=== PATIENT | male | born 1985 ===

== ENCOUNTER 2023-05-28 21:08 | Emergency (ER) | payer MEDICAID, SELFPAY ==
[2023-05-28 21:14] VITALS: BP 133/65; PULSE 143; RESP 18; TEMP 37.7; O2SAT 96; BMI 24.1
[2023-05-28 21:26] VITALS: BP 130/62; PULSE 136; RESP 16; TEMP 37.5; O2SAT 96
--- NOTE | 2023-05-28 21:43 | MHC.EDTECH ---
THIS PCT JUST ASSUMED CARE OF PATIENT ,VITALS SIGN TAKEN ,BLOOD DRAWN ,RSV COVID SWAB COLLECTED AND SENT TO LAB ,EKG TAKEN AND WAS READ BY PROVIDER ,PATIENT WAS HOOKED UP TO [facility] .
--- NOTE | 2023-05-28 21:58 | ED.GENADULT ---
HPI - General Adult General Chief complaint: General Medical Stated complaint: abd pain,sore throat Time Seen by Provider: 05/28/23 21:56 Source: patient Mode of arrival: ambulatory Limitations: no limitations History of Present Illness HPI narrative: Patient with History of chronic abdominal pain otherwise healthy comes here for sore throat low-grade fever chills nausea for last 3 days no vomiting no abdominal distention patient has not seen in MD for abdominal pain does have occasional cough no shortness of breath Related Data Previous Rx's Medication Instructions Recorded cefuroxime axetil 500 mg tablet 500 mg PO BID #20 tabs 05/29/23 ibuprofen 600 mg tablet 600 mg PO Q6H PRN fever or pain 05/29/23 #30 tabs Allergies Allergy/AdvReac Type Severity Reaction Status Date / Time No Known Allergies Allergy Unverified 12/04/21 15:09 [No Known Allergies*] Review of Systems Review of Systems: Yes all other systems are reviewed and are negative PMFSH Social History Social History Advance Directives: No Advance Directives Information Provided: Yes Physical Exam ED Vital Signs: Vital Signs - 24 hr 05/28/23 21:14 05/28/23 21:26 05/28/23 22:43 Temperature 99.8 F 99.5 F 98.7 F Pulse Rate 143 H 136 H 101 H Respiratory Rate 18 16 20 Blood Pressure 133/65 130/62 116/70 Pulse Oximetry 96 96 95 Oxygen Delivery Method Room Air Room Air Room Air 05/28/23 23:25 Temperature 98.7 F Pulse Rate 82 Respiratory Rate 16 Blood Pressure 102/53 L Pulse Oximetry 97 Oxygen Delivery Method Room Air BMI result Body Mass Index 24.1 Appearance: Alert. Oriented X3. No acute distress. Eyes: No pallor or icterus ENT: Pharynx normal. Oral Mucosa moist Neck: Normal inspection. Neck supple. CVS: Normal heart rate and rhythm. Pulses normal. Respiratory: No respiratory distress. Equal air entry bilateral, no wheezing/rales/rhonchi Abdomen: Soft deep tenderness left lower quadrant no rebound tenderness or guarding Bowel sounds are present, no mass palpable, no CVA tenderness Skin: Skin warm and dry. Normal skin color. Normal skin turgor. Extremities: No lower extremity edema. No calf tenderness Neuro: Oriented X 3. No motor deficit. Medications Administered Generic Name Dose Route Start Last Admin Trade Name Jensen PRN Reason Stop Dose Admin Sodium Chloride 1,000 mls @ 999 mls/hr 05/29/23 00:11 05/29/23 00:18 Ns IV 05/29/23 01:11 999 mls/hr .Q1H1M ONE Administration Discontinued Medications Generic Name Dose Route Start Last Admin Trade Name Jensen PRN Reason Stop Dose Admin Sodium Chloride 1,000 mls @ 999 mls/hr 05/28/23 22:06 05/28/23 23:18 Ns IV 05/28/23 23:06 Infused .Q1H1M ONE Infusion Ceftriaxone Sodium 1 gm/ 50 mls @ 100 mls/hr 05/28/23 22:14 05/28/23 23:11 Sodium Chloride IV 05/28/23 22:43 Infused ONCE ONE Infusion Ketorolac Tromethamine 30 mg 05/28/23 22:06 05/28/23 22:16 Ketorolac Tromethamine 30 Mg/Ml Vial IVPUSH 05/28/23 22:07 30 mg ONCE ONE Administration Medical Decision Making Medical Decision Making [facility] Narrative: Patient workup showed normal leukocyte count with lactic acidosis tachycardia urine was cocaine positive. CT scan of the abdomen was negative strep was also negative likely patient has a bacterial pharyngitis patient received IV Rocephin discharge patient home on Ceftin. Patient does have chronic abdominal which is nonspecific Lab Data [facility] Lab Attestation statement: I reviewed the patient's lab results. 05/28/23 21:33 05/28/23 21:33 Labs: Lab Results 05/28/23 05/28/23 05/28/23 Range/Units 21:33 21:33 21:33 WBC 10.4 (4.8-10.8) X10*3/uL RBC 4.56 L (4.60-5.80) X10*6/uL Hgb 14.1 (14.0-18.0) g/dl Hct 42.8 (42.0-52.0) % MCV 93.9 (80.0-98.0) fL MCH 30.9 (27.0-33.0) pg MCHC 32.9 (31.0-36.0) g/dl RDW 12.8 (11.0-16.0) % Plt Count 345 (160-400) X10*3/uL MPV 10.0 (9.4-12.4) fL Immature Gran % (Auto) 0.4 (0.0-0.4) % Neut % (Auto) 76.1 H (45-73) % Lymph % (Auto) 16.9 L (20-40) % Tift % (Auto) 5.6 (2-11) % Eos % (Auto) 0.3 (0-4) % Baso % (Auto) 0.7 (0-2) % Lymph # (Auto) 1.8 (1.2-4.9) X10*3/uL Tift # (Auto) 0.6 (0.1-1.2) X10*3/uL Eos # (Auto) 0.0 (0.0-0.4) X10*3/uL Baso # (Auto) 0.1 (0.0-0.2) X10*3/uL Abs Immat Gran (auto) 0.04 H (0.00-0.03) X10*3/uL Absolute Neuts (auto) 8.0 (2.0-8.3) x10*3/uL Absolute Nucleated RBC 0.000 (0.0-0.012) X10*3/uL Nucleated RBC % (auto) 0.0 (0.0-0.2) /100WBC Sodium 142 (135-145) mmol/L Potassium 3.6 (3.3-5.1) mmol/L Chloride 107 (96-108) mmol/L Carbon Dioxide 23 (22-29) mmol/L Anion Gap 16 (12-20) BUN 14 (9-16) mg/dL Creatinine 1.27 (0.5-1.4) mg/dL Estim Creat Clear Calc 69.9 Estimated GFR > 60 Random Glucose 122 H (60-115) mg/dL Lactic Acid 2.9 H* (0.5-2.0) mmol/L Lactic Acid F/U @ 2Hr (0.5-2.0) mmol/L Calcium 9.7 (8.4-10.2) mg/dL Total Bilirubin 0.5 (0.0-1.0) mg/dL AST 22 (5-37) U/L ALT 19 (0-40) U/L Alkaline Phosphatase 78 (39-117) U/L Total Protein 7.8 (6.5-8.0) g/dL Albumin 4.4 (3.5-5.0) g/dL Lipase 160 H (8-78) U/L Urine Color Urine Appearance Urine pH (5.0-9.0) Ur Specific [place] (1.005-1.025) Urine Protein (Neg-Trace) mg/dL Urine Glucose (UA) (Negative) mg/dL Urine Ketones (Negative) mg/dL Urine Blood (Negative) Urine Nitrite (Negative) Ur Leukocyte Esterase (Negative) Urine RBC (0-2) /HPF Urine WBC (0-5) /HPF Ur Squamous Epith Cells (0-2) /HPF Urine Bacteria (None Seen) Hyaline Casts (0-2) /LPF Urine Opiates Screen (Not Detect) Urine Fentanyl Screen (Not Detect) Ur Barbiturates Screen (Not Detect) Ur Phencyclidine Scrn (Not Detect) Ur Amphetamines Screen (Not Detect) U Benzodiazepines Scrn (Not Detect) Urine Cocaine Screen (Not Detect) U Marijuana (THC) Screen (Not Detect) Influenza Type A (PCR) (Negative) Influenza Type B (PCR) (Negative) RSV RNA Qual (PCR) (Negative) SARS-CoV-2 RNA (RT-PCR) (Negative) S. pyogenes GrpA [place] (Negative) 05/28/23 05/28/23 05/28/23 Range/Units 21:33 22:16 23:47 WBC (4.8-10.8) X10*3/uL RBC (4.60-5.80) X10*6/uL Hgb (14.0-18.0) g/dl Hct (42.0-52.0) % MCV (80.0-98.0) fL MCH (27.0-33.0) pg MCHC (31.0-36.0) g/dl RDW (11.0-16.0) % Plt Count (160-400) X10*3/uL MPV (9.4-12.4) fL Immature Gran % (Auto) (0.0-0.4) % Neut % (Auto) (45-73) % Lymph % (Auto) (20-40) % Tift % (Auto) (2-11) % Eos % (Auto) (0-4) % Baso % (Auto) (0-2) % Lymph # (Auto) (1.2-4.9) X10*3/uL Tift # (Auto) (0.1-1.2) X10*3/uL Eos # (Auto) (0.0-0.4) X10*3/uL Baso # (Auto) (0.0-0.2) X10*3/uL Abs Immat Gran (auto) (0.00-0.03) X10*3/uL Absolute Neuts (auto) (2.0-8.3) x10*3/uL Absolute Nucleated RBC (0.0-0.012) X10*3/uL Nucleated RBC % (auto) (0.0-0.2) /100WBC Sodium (135-145) mmol/L Potassium (3.3-5.1) mmol/L Chloride (96-108) mmol/L Carbon Dioxide (22-29) mmol/L Anion Gap (12-20) BUN (9-16) mg/dL Creatinine (0.5-1.4) mg/dL Estim Creat Clear Calc Estimated GFR Random Glucose (60-115) mg/dL Lactic Acid (0.5-2.0) mmol/L Lactic Acid F/U @ 2Hr 1.6 (0.5-2.0) mmol/L Calcium (8.4-10.2) mg/dL Total Bilirubin (0.0-1.0) mg/dL AST (5-37) U/L ALT (0-40) U/L Alkaline Phosphatase (39-117) U/L Total Protein (6.5-8.0) g/dL Albumin (3.5-5.0) g/dL Lipase (8-78) U/L Urine Color Urine Appearance Urine pH (5.0-9.0) Ur Specific [place] (1.005-1.025) Urine Protein (Neg-Trace) mg/dL Urine Glucose (UA) (Negative) mg/dL Urine Ketones (Negative) mg/dL Urine Blood (Negative) Urine Nitrite (Negative) Ur Leukocyte Esterase (Negative) Urine RBC (0-2) /HPF Urine WBC (0-5) /HPF Ur Squamous Epith Cells (0-2) /HPF Urine Bacteria (None Seen) Hyaline Casts (0-2) /LPF Urine Opiates Screen (Not Detect) Urine Fentanyl Screen (Not Detect) Ur Barbiturates Screen (Not Detect) Ur Phencyclidine Scrn (Not Detect) Ur Amphetamines Screen (Not Detect) U Benzodiazepines Scrn (Not Detect) Urine Cocaine Screen (Not Detect) U Marijuana (THC) Screen (Not Detect) Influenza Type A (PCR) NEGATIVE (Negative) Influenza Type B (PCR) NEGATIVE (Negative) RSV RNA Qual (PCR) NEGATIVE (Negative) SARS-CoV-2 RNA (RT-PCR) NEGATIVE (Negative) S. pyogenes GrpA [place] Negative (Negative) 05/29/23 05/29/23 Range/Units 00:31 00:31 WBC (4.8-10.8) X10*3/uL RBC (4.60-5.80) X10*6/uL Hgb (14.0-18.0) g/dl Hct (42.0-52.0) % MCV (80.0-98.0) fL MCH (27.0-33.0) pg MCHC (31.0-36.0) g/dl RDW (11.0-16.0) % Plt Count (160-400) X10*3/uL MPV (9.4-12.4) fL Immature Gran % (Auto) (0.0-0.4) % Neut % (Auto) (45-73) % Lymph % (Auto) (20-40) % Tift % (Auto) (2-11) % Eos % (Auto) (0-4) % Baso % (Auto) (0-2) % Lymph # (Auto) (1.2-4.9) X10*3/uL Tift # (Auto) (0.1-1.2) X10*3/uL Eos # (Auto) (0.0-0.4) X10*3/uL Baso # (Auto) (0.0-0.2) X10*3/uL Abs Immat Gran (auto) (0.00-0.03) X10*3/uL Absolute Neuts (auto) (2.0-8.3) x10*3/uL Absolute Nucleated RBC (0.0-0.012) X10*3/uL Nucleated RBC % (auto) (0.0-0.2) /100WBC Sodium (135-145) mmol/L Potassium (3.3-5.1) mmol/L Chloride (96-108) mmol/L Carbon Dioxide (22-29) mmol/L Anion Gap (12-20) BUN (9-16) mg/dL Creatinine (0.5-1.4) mg/dL Estim Creat Clear Calc Estimated GFR Random Glucose (60-115) mg/dL Lactic Acid (0.5-2.0) mmol/L Lactic Acid F/U @ 2Hr (0.5-2.0) mmol/L Calcium (8.4-10.2) mg/dL Total Bilirubin (0.0-1.0) mg/dL AST (5-37) U/L ALT (0-40) U/L Alkaline Phosphatase (39-117) U/L Total Protein (6.5-8.0) g/dL Albumin (3.5-5.0) g/dL Lipase (8-78) U/L Urine Color Dark Yellow Urine Appearance Cloudy Urine pH 6.0 (5.0-9.0) Ur Specific [place] >= 1.030 H (1.005-1.025) Urine Protein 30 (1+) H (Neg-Trace) mg/dL Urine Glucose (UA) Negative (Negative) mg/dL Urine Ketones Trace (Negative) mg/dL Urine Blood Negative (Negative) Urine Nitrite Negative (Negative) Ur Leukocyte Esterase Negative (Negative) Urine RBC 0-2 (0-2) /HPF Urine WBC 0-5 (0-5) /HPF Ur Squamous Epith Cells 0-2 (0-2) /HPF Urine Bacteria None Seen (None Seen) Hyaline Casts 11-20 (0-2) /LPF Urine Opiates Screen Not Detected (Not Detect) Urine Fentanyl Screen Not Detected (Not Detect) Ur Barbiturates Screen Not Detected (Not Detect) Ur Phencyclidine Scrn Not Detected (Not Detect) Ur Amphetamines Screen Not Detected (Not Detect) U Benzodiazepines Scrn Not Detected (Not Detect) Urine Cocaine Screen POSITIVE H (Not Detect) U Marijuana (THC) Screen POSITIVE H (Not Detect) Influenza Type A (PCR) (Negative) Influenza Type B (PCR) (Negative) RSV RNA Qual (PCR) (Negative) SARS-CoV-2 RNA (RT-PCR) (Negative) S. pyogenes GrpA [place] (Negative) Discharge Plan Discharge Clinical Impression: Acute pharyngitis Patient Disposition: Home, Self-Care Instructions: Pharyngitis (ED) Additional Instructions: Drink plenty of fluids Antibiotic as prescribed Ibuprofen for pain Follow with PCP if not better Prescriptions: New ibuprofen 600 mg tablet 600 mg PO Q6H PRN (Reason: fever or pain) Qty: 30 0RF cefuroxime axetil 500 mg tablet 500 mg PO BID Qty: 20 0RF
--- NOTE | 2023-05-28 22:23 | PC.NURSE ---
pt to CT
[2023-05-28 22:43] VITALS: BP 116/70; PULSE 101; RESP 20; TEMP 37.1; O2SAT 95
[2023-05-28 23:25] VITALS: BP 102/53; PULSE 82; RESP 16; TEMP 37.1; O2SAT 97
--- NOTE | 2023-05-28 23:38 | PC.NURSE ---
Pt given saltine crackers and bharat marino for PO challenge. Tolerating well at this time.
--- NOTE | 2023-05-29 00:20 | MHC.EDTECH ---
Addendum entered by Neena Quezada 05/29/23 00:32: PATIENT WAS ABLE TO VOID ,URINE SAMPLE COLLECTED AND SENT TO LAB . Original Note: patient was asked several times for urine sample ,each time patient said he still cant void ,rn and provider aware .
--- NOTE | 2023-05-30 00:22 | PC.NURSE ---
Rand cultures positive- no personal phone for the patient- left a message on parents voice mail to call the hospital regarding their son
== END 2023-05-29 01:23 | disposition home or self-care (01) ==
PROVIDERS: Emergency Provider Internal Medicine; PCP Internal Medicine
DX: J02.9 Acute pharyngitis, unspecified (principal); R10.32 Left lower quadrant pain; Z20.822 Contact with and (suspected) exposure to COVID-19; Z20.828 Contact with and (suspected) exposure to other viral communicable diseases; R00.0 Tachycardia, unspecified; F14.90 Cocaine use, unspecified, uncomplicated; F12.90 Cannabis use, unspecified, uncomplicated
CPT/HCPCS: 0241U; 36415; 74176; 80053; 80307; 81001; 83605; 83690; 85025; 87040; 87147; 87205; 87651; 93005; 96361; 96374; 96375; 99284; 99285; J0696; J1885

== ENCOUNTER 2023-11-04 18:13 | Emergency (ER) | payer MEDICAID, SELFPAY | END 2023-11-04 21:21 | disposition left against medical advice (07) | PROVIDERS: Emergency Provider Emergency Medicine | DX: H92.03 Otalgia, bilateral (principal) ==

== ENCOUNTER 2023-11-05 17:11 | Emergency (ER) | payer MEDICAID, SELFPAY ==
--- NOTE | ~2023-11-05 | XR_ITS ---
EXAMINATION: XR KNEE, RIGHT CLINICAL INFORMATION: Pain behind knee COMPARISON: Bilateral knee radiograph from 05/01/2015 TECHNIQUE: Four views of the right knee. FINDINGS: No acute visible fracture or dislocation. Joint spaces and alignment are maintained. Trace knee joint effusion. Soft tissues are unremarkable. XR/XR knee RT 3V IMPRESSION: 1. No acute visible fracture or dislocation. 2. Trace knee joint effusion.
--- NOTE | ~2023-11-05 | XR_ITS ---
EXAMINATION: XR CHEST CLINICAL INFORMATION: Shortness of breath. Cough. COMPARISON: None available. TECHNIQUE: 2 views of the chest were obtained. FINDINGS: No significant abnormality is noted involving the heart, lungs, mediastinum, bony thorax or soft tissues. XR/XR chest 2V IMPRESSION: Unremarkable examination.
--- NOTE | 2023-11-05 17:19 | ED_ITS ---
HPI - URI/Sore Throat General Chief Complaint: General Medical Stated Complaint: body aches, flu like symptoms Time Seen by Provider: 11/05/23 18:34 Source: patient Mode of arrival: ambulatory Limitations: no limitations History of Present Illness HPI Narrative: Patient comes to the emergency room complaining of left-sided ear pain, cough, generalized malaise for 1 week. Also, patient complaining of right knee pain, no trauma. No swelling, no erythema of the knee. Related Data Previous Rx's Medication Instructions Recorded cefuroxime axetil 500 mg tablet 500 mg PO BID #20 tabs 05/29/23 ibuprofen 600 mg tablet 600 mg PO Q6H PRN fever or pain 05/29/23 #30 tabs ibuprofen 600 mg tablet 600 mg PO Q8H PRN fever or pain 11/05/23 #20 tabs Allergies Allergy/AdvReac Type Severity Reaction Status Date / Time No Known Allergies Allergy Verified 11/05/23 17:24 [No Known Allergies*] Review of Systems Review of Systems: Constitutional : No Weight loss, No Fever, No Chills, No Night Sweats, No Fatigue, complaining of generalized malaise ENT/Mouth : No Hearing loss, complaining of left-sided Ear Pain, complaining of Nasal Congestion, No Sinus Pain, No Hoarseness, complaining of sore throat, No Rhinorrhea, No Swallowing Difficulty Eyes: No Eye Pain, No Swelling, No Redness, No Foreign Body, No Discharge, No Vision Changes Cardiovascular : No Chest Pain, No SOB, No Dyspnea on Exertion, No Orthopnea, No Edema, No Palpitations Respiratory : No Cough, No Sputum, No Wheezing, No Smoke Exposure, No Dyspnea Gastrointestinal : No Nausea, No Vomiting, No Diarrhea, No Constipation, No abdominal Pain, No Hematochezia, No Melena Genitourinary : no irregular bleeding, No Dysuria, No Urinary Frequency, No Hematuria, No Urinary Incontinence, No Urgency, No Flank Pain, No Urinary Flow Changes, No Hesitancy Musculoskeletal : Complaining of right knee pain with no trauma swelling or erythema, No Myalgias, No Joint Swelling Skin : No Skin Lesions, No rash Neuro : No Weakness, No Numbness, No Paresthesias, No Loss of Consciousness, No Dizziness, No Headache Psych : No Anxiety/Panic, No Depression, No SI/HI/AH/VH, No Social Issues, Heme/Lymph: No Bruising, No Bleeding,No Lymphadenopathy Endocrine : No Polyuria, No Polydipsia, No Temperature Intolerance ON LICENSE OF [facility] Past Medical History Medical History (Updated 11/05/23 @ 18:54 by Lesa Rodrigez MD) Polysubstance abuse Social History Social History Advance Directives: No Advance Directives Information Provided: No Physical Exam Vital Signs: Vital Signs: Last Vital Signs Temp 98.0 F 11/05/23 17:25 Pulse 77 11/05/23 17:25 Resp 18 11/05/23 17:25 BP 144/91 H 11/05/23 17:25 Pulse Ox 99 11/05/23 17:25 O2 Del Method Room Air 11/05/23 17:25 BMI result Body Mass Index 26.7 Const: Other: Appearance: Alert. Oriented X3. No acute distress. Eyes: Pupils equal, round and reactive to light. Tympanic membranes bilaterally within normal limits ENT: Pharynx erythematous, no exudates, no abscess Neck: Normal inspection. Neck supple. No lymph nodes noted. No crepitus CVS: Normal heart rate and rhythm. Pulses normal. Normal S1 and S2 Respiratory: No respiratory distress. Breath sounds normal. No Wheezing. No rales Abdomen: Soft and nontender. No rigidity. No distention. Skin: Skin warm and dry. Normal skin color. Normal skin turgor. Extremities: No lower extremity edema. No Lacerations. No Rash, patient ambulatory without difficulty Neuro: Oriented X 3. No motor deficit. No sensory deficit. Moving all extremities. No slurred speech. CN 2 through 12 grossly intact Psych: calm, cooperative, normal affect Course Course Course Narrative: RME: 38-year-old male with no significant past medical history presenting to the ED complaining of feeling ill w/HAAS, ear pain, cough & SOB x 1 week. Also reports RLE pain x yesterday which he suspects from walking around - denies injury CXR, Knee XR, Viral testing ordered Full HPI, ROS and PE to be performed by primary ED provider. Medical Decision Making Medical Decision Making MDM Narrative: -my interpretation of knee x-ray: Normal alignment -my interpretation of chest x-ray: No pneumonia or infiltrate -my interpretation of labs: Negative for strep, COVID and influenza Differential Diagnosis Differential Diagnoses: The differential diagnosis associated with the present ation includes Lab Data MDM Lab Attestation statement: I reviewed the patient's lab results. Labs: Lab Results 11/05/23 Range/Units 18:21 COVID-19 ([facility]) Negative (Negative) COVID-19 Clin Com See Note Influenza Type A ([facility]) Negative (Negative) Influenza Type B ([facility]) Negative (Negative) Influenza A & B Note See Note S. pyogenes GrpA [place] Negative (Negative) Independent Interpretation I performed an independent interpretation of an: Plain X-Ray Radiology Impression Discussion of test interpretation with radiology: I have reviewed the radiol ogist's reading. Radiologist Impression: IMPRESSION: 1. No acute visible fracture or dislocation. 2. Trace knee joint effusion. Chest x-ray: FINDINGS: No significant abnormality is noted involving the heart, lungs, mediastinum, bony thorax or soft tissues. XR/XR chest 2V IMPRESSION: Unremarkable examination. Discharge Plan Discharge Clinical Impression: Viral upper respiratory infection Patient Disposition: Home, Self-Care Instructions: Viral Syndrome (ED) Additional Instructions: Please follow-up with your primary care physician tomorrow. If you have any worsening or new symptoms, please return to the emergency room or call 911 Prescriptions: New ibuprofen 600 mg tablet 600 mg PO Q8H PRN (Reason: fever or pain) Qty: 20 0RF No Action ibuprofen 600 mg tablet 600 mg PO Q6H PRN (Reason: fever or pain) Qty: 30 0RF cefuroxime axetil 500 mg tablet 500 mg PO BID Qty: 20 0RF
[2023-11-05 17:25] VITALS: BP 144/91; PULSE 77; RESP 18; TEMP 36.7; O2SAT 99; BMI 26.7
[2023-11-05 18:41] LABS: COVID-19 Test Negative (Negative); IDNOW Serial# 08D9AD1C; IDNOW Serial# BCCEAD1C; Strep A Nucleic Acid Negative (Negative)
[2023-11-05 18:43] LABS: IDNOW Serial# 9DB6401D; Influenza A Negative (Negative); Influenza B2 Negative (Negative)
[2023-11-05 19:16] VITALS: BP 129/76; PULSE 74; RESP 16; TEMP 36.8; O2SAT 98
== END 2023-11-05 19:19 | disposition home or self-care (01) ==
PROVIDERS: Physician Assistant; Emergency Provider Emergency Medicine
DX: J06.9 Acute upper respiratory infection, unspecified (principal); R05.9 Cough, unspecified; H92.02 Otalgia, left ear; M25.561 Pain in right knee; Z11.52 Encounter for screening for COVID-19; F11.20 Opioid dependence, uncomplicated
CPT/HCPCS: 71046; 73562; 87502; 87635; 87651; 99283; 99284

== ENCOUNTER 2023-11-06 09:37 | Emergency (ER) | payer MEDICAID, SELFPAY ==
--- NOTE | ~2023-11-06 | CT_ITS ---
CT ANGIOGRAM NECK WITH CONTRAST CT ANGIOGRAM BRAIN WITH CONTRAST CLINICAL INFORMATION: Altered mental status. COMPARISON: Head CT November 06, 2023. TECHNIQUE: Test bolus sequences followed by intravenous administration 70 mL of Omnipaque 350. Helical imaging was performed in the axial plane from the thoracic inlet to the skull vertex. Delayed postcontrast imaging of the head was also performed. The data was processed at the polysomnography technologist workstation for generation of MIP sequences. Angled MIPs and volume rendered reformatted images were also generated at an offline 3D workstation under concurrent supervision. Stenoses are assessed in accordance with NASCET criteria unless otherwise indicated. This CT examination was performed using dose optimization techniques as appropriate, variously including the following: *Automated exposure control *Adjustment of mA and/or kV according to patient size (this includes techniques or standardized protocols for targeted exams where dose is matched to indication/reason for exam; i.e. extremities or head) *Use of iterative reconstruction technique FINDINGS: BRAIN: [There is no intracranial hemorrhage, hydrocephalus, extra-axial surface collection, midline shift, or other herniation pattern. Ochoa to white matter differentiation is diffusely maintained without evidence of an evolved acute territorial infarct. The basilar cisterns are preserved. No significant soft tissue abnormality. No acute osseous abnormality. There is moderate mucosal thickening within the maxillary sinuses bilaterally and the right sphenoid sinus. Significant opacification of the left greater the right ethmoid air cells. Moderate mucosal thickening within the left frontal sinus and mild mucosal thickening within the right frontal sinus. Mastoid air cells are clear. 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 No acute osseous findings. No significant soft tissue findings within the neck. Imaged upper lungs are clear. NECK CTA: [There is a classic 3 vessel configuration of the aortic arch. Proximal arch vessels are non-stenotic. The vertebral arteries are codominant. No significant ostial stenosis is visualized on either side. Both vertebral arteries are widely patent throughout their extracranial cervical course. Both common and internal carotid arteries are normal in course and caliber.] BRAIN CTA: [There is normal opacification of major intracranial arteries. No focal flow-limiting stenosis nor discrete proximal large artery occlusion. No aneurysm. Timing of the contrast bolus allows assessment of the major dural venous sinuses, which all opacify normally] CT/CT angio head neck IMPRESSION: - No acute intracranial findings. - No acute arterial occlusions and no significant arterial stenoses within the head or neck. - Fairly extensive sinus disease as described.
--- NOTE | ~2023-11-06 | CT_ITS ---
EXAMINATION: CT HEAD WITHOUT CONTRAST CLINICAL INFORMATION: Altered mental status COMPARISON: None available. TECHNIQUE: Contiguous axial imaging was performed from the skull base to vertex without intravenous administration of contrast. This CT examination was performed using dose optimization techniques as appropriate, variously including the following: *Automated exposure control *Adjustment of mA and/or kV according to patient size (this includes techniques or standardized protocols for targeted exams where dose is matched to indication/reason for exam; i.e. extremities or head) *Use of iterative reconstruction technique DLP: 691 mGy-cm FINDINGS: There is no evidence of acute intracranial hemorrhage or territorial infarction. No abnormal mass effect or midline shift is appreciated. Ochoa-white differentiation is well preserved. No extra-axial fluid collections. The ventricular system and cortical sulci are normal in size. The osseous structures and soft tissues are normal. Prominent mucosal thickening of the paranasal sinuses. Mastoid air cells are well aerated. CT/CT head/brain wo IV con IMPRESSION: 1. No acute intracranial pathology. 2. Prominent mucosal thickening of the paranasal sinuses.
--- NOTE | ~2023-11-06 | MR_ITS ---
EXAMINATION: MR BRAIN WITHOUT CONTRAST CLINICAL INFORMATION: AMS. bizarre behavior URI dx yesterday r/o SAH COMPARISON: Same day CTA head and neck TECHNIQUE: Multiplanar multisequence MR imaging of the brain was obtained without intravenous contrast. FINDINGS: There is no acute infarct on diffusion-weighted imaging. There is no intracranial hemorrhage on iron-sensitive imaging. No extra-axial collection or mass effect/herniation. There are several scattered foci of nonspecific supratentorial white matter T2/FLAIR signal abnormality. No hydrocephalus. The ventricles are normal in morphology and size. The major flow voids at the skull base are preserved. The midline structures are normal. The cerebellar tonsils are normally positioned. The craniocervical junction is normal. Marrow signal is within normal limits. The visualized soft tissues are without significant abnormality. Diffuse paranasal sinus inflammatory disease, most prominently involving the left frontal and left greater than right ethmoid sinuses. MR/MR head/brain wo con IMPRESSION: No acute intracranial abnormality.
--- NOTE | 2023-11-06 09:45 | ED_ITS ---
HPI - General Adult General Chief complaint: General Medical Stated complaint: not feeling well Time Seen by Provider: 11/06/23 09:44 Source: patient Mode of arrival: ambulatory Limitations: altered mental status and other (Poor historian) History of Present Illness HPI narrative: 38-year-old male without significant medical history presents to the emergency department screaming in the waiting room, stating he needs help grabbing his head stating his head hurts. Appears to be altered. He all use telling the has his head hurts unable to elaborate on this. Denies drugs and alcohol use. Denies trauma. No history of this in the past. Very poor historian. Related Data Previous Rx's Medication Instructions Recorded cefuroxime axetil 500 mg tablet 500 mg PO BID #20 tabs 05/29/23 ibuprofen 600 mg tablet 600 mg PO Q6H PRN fever or pain 05/29/23 #30 tabs ibuprofen 600 mg tablet 600 mg PO Q8H PRN fever or pain 11/05/23 #20 tabs dhjlfnmxxz-kmywotkspzmcj-mcqtopyf 1 tab PO Q6H PRN haeadace #20 tabs 11/06/23 50 mg-325 mg-40 mg tablet sumatriptan succinate 50 mg tablet 50 mg PO Q2H PRN migraine headache 11/06/23 (Imitrex) #10 tabs Allergies Allergy/AdvReac Type Severity Reaction Status Date / Time No Known Allergies Allergy Verified 11/05/23 17:24 [No Known Allergies*] Review of Systems 2 Review of Systems: Constitutional : No Weight loss, No Fever, No Chills, No Fatigue, No Malaise ENT/Mouth : No sore throat, No Rhinorrhea Eyes: No Eye Pain, No Swelling, No Redness Cardiovascular : No Chest Pain, No SOB, No Dyspnea on Exertion, No Orthopnea, No Edema, No Palpitations Respiratory : No Cough, No Sputum, No Wheezing Gastrointestinal : No Nausea, No Vomiting, No Diarrhea, No Constipation, No abdominal Pain, No Hematochezia, No Melena Genitourinary : No Dysuria, No Urinary Frequency, No Hematuria, Musculoskeletal : No joint pain, No Myalgias, No Joint Swelling Skin : No Skin Lesions, No rash Neuro : No Weakness, No Numbness, No Dizziness, + Headache Psych : No Anxiety/Panic, No Depression All other systems reviewed and are negative Yes all other systems are reviewed and are negative [facility] Past Medical History Attestation statement: The following information was validated with the patient. Source: old records reviewed and nursing notes reviewed Medical History Polysubstance abuse Social History Social History Alcohol intake: former Smoked in Last 30 Days: Yes Use of substances other than those prescribed or required for medical reasons: No Advance Directives: No Advance Directives Information Provided: No Physical Exam ED Vital Signs: Vital Signs - 24 hr 11/06/23 10:29 11/06/23 12:05 11/06/23 15:16 Temperature 98.9 F Pulse Rate 91 Respiratory Rate 20 14 14 Blood Pressure 149/86 H 115/70 121/77 Pulse Oximetry 94 97 96 Oxygen Delivery Method Room Air Room Air Room Air 11/06/23 18:44 Temperature Pulse Rate 73 Respiratory Rate 15 Blood Pressure 119/77 Pulse Oximetry 98 Oxygen Delivery Method Room Air BMI result Body Mass Index 24.6 vss Appearance: Alert.? Oriented X3.? No acute distress.?Involuntary erratic movements screaming Head: Normocephalic, atraumatic, no step-offs or deformities Eyes: Pupils equal, round and reactive to light.? ENT: Pharynx normal.? Neck: Normal inspection.? Neck supple.? CVS: Normal heart rate and rhythm.? Pulses normal.? Respiratory: No respiratory distress.? Breath sounds normal.? Abdomen: Soft and nontender.? Skin: Skin warm and dry.? Normal skin color.? Normal skin turgor.? Extremities: No lower extremity edema.? No calf ttp. 5/5 strength to bilateral upper and lower extremities Neuro: Oriented X 3.? No motor deficit.? No sensory deficit. CN 2-12 intact . 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 Course Course Course Narrative: Tried getting records from [facility]- no previous records. Reevaluation(s) Reevaluation #1: Patient's CBC within normal limits. Chemistry no acute findings requiring intervention. Patient is noted to have a lactic acidosis 2.6. Normal CRP and ESR normal. CT head no acute intracranial pathology prominent mucosal thickening of the paranasal sinuses. Time: 11:30 Reevaluation #2: CTA ordered. I did have a long conversation with patient about obtaining a lumbar puncture and he is adamantly refusing I went over benefits of this procedure versus risks he understands these and is unwilling to have this procedure done. Will reach out to [facility] Neurology. Time: 11:49 Reevaluation #3: at [facility] neurology did not feel comfortable discussing this case, therefore did not receive a call back. Time: 12:03 Additional Reevaluation(s): Spoke to neurology. Only other concern viral meningitis which recommends LP . LP needed but patient refusing. Can justify non contrast MRI to r/o subarachnoid hemorrhage. In the meantime treating the pain with sumatriptan is recommended. Sign out to Dr. Smith. If MRI negative patient should be seen by care team for ? new psychosis Medications Administered Discontinued Medications Generic Name Dose Route Start Last Admin Trade Name Freq PRN Reason Stop Dose Admin Fentanyl 50 mcg 11/06/23 10:19 11/06/23 10:25 Fentanyl Citrate/Pf 100 Mcg/2 Ml Vial IVPUSH 11/06/23 10:20 50 mcg ONCE ONE Administration Protocol Ceftriaxone Sodium 1 gm/ 50 mls @ 100 mls/hr 11/06/23 10:59 11/06/23 11:47 Sodium Chloride IV 11/06/23 11:28 Infused ONCE ONE Infusion Iohexol 70 ml 11/06/23 11:36 11/06/23 11:37 Iohexol 350 Mg/Ml 75 Ml Infus..Btl IV 11/06/23 11:37 70 ml ONCE ONE Administration Lorazepam 2 mg 11/06/23 09:41 11/06/23 09:58 Lorazepam 1 Mg Tablet PO 11/06/23 09:42 2 mg ONCE ONE Administration Sumatriptan Succinate 6 mg 11/06/23 13:39 11/06/23 14:09 Sumatriptan Succinate 6 Mg/0.5 Ml Vial SUBCUT 11/06/23 13:40 6 mg ONCE ONE Administration Medical Decision Making Medical Decision Making [facility] Narrative: 38-year-old male presents with altered mental status, complaining of headache Physical exam patient with erratic behavior rolling around the ground Concerns for polysubstance abuse. Versus acute psychosis. Less likely meningitis, encephalitis, intracranial hemorrhage. Plan at this time CT scan, labs, urine toxicology 720 pm: Patient seen and re-evaluated history of polysubstance abuse uses THC and cocaine today THC was positive. Came with headache which going on for long time off and on localized to left-sided with light sensitivity and nausea had similar headache today does have aura phase and knows when headache is coming. Patient had detailed workup done including CT scan of the head CTA head and neck and MRI of head which is negative patient received fentanyl and Imitrex and feeling much better after that at this time patient does not have any headache no focal deficit denies any significant depression or anxiety denies any need of help for detox or psychological issues. Will discharge patient home on Imitrex and Fioricet patient is ambulatory alert oriented x3 no focal deficit noticed Differential Diagnosis Differential Diagnoses: The differential diagnosis associated with the presentation includes Concerns for polysubstance abuse. Versus acute psychosis. Less likely meningitis, encephalitis, intracranial hemorrhage. Admission/Observation Consideration of admission/observation: Escalation of care including admission/observation considered Consult Healthcare Provider Management of the patient was discussed with: Econometrician Lab Data [facility] Lab Attestation statement: I reviewed the patient's lab results. 11/06/23 10:17 11/06/23 10:17 Labs: Lab Results 11/06/23 11/06/23 11/06/23 Range/Units 10:17 10:19 10:25 WBC 8.2 (4.8-10.8) X10*3/uL RBC 5.06 (4.60-5.80) X10*6/uL Hgb 15.6 (14.0-18.0) g/dl Hct 47.1 (42.0-52.0) % MCV 93.1 (80.0-98.0) fL MCH 30.8 (27.0-33.0) pg MCHC 33.1 (31.0-36.0) g/dl RDW 12.4 (11.0-16.0) % Plt Count 303 (160-400) X10*3/uL MPV 10.3 (9.4-12.4) fL Immature Gran % (Auto) 0.4 (0.0-0.4) % Neut % (Auto) 64.0 (45-73) % Lymph % (Auto) 25.6 (20-40) % Turner % (Auto) 7.6 (2-11) % Eos % (Auto) 1.5 (0-4) % Baso % (Auto) 0.9 (0-2) % Lymph # (Auto) 2.1 (1.2-4.9) X10*3/uL Turner # (Auto) 0.6 (0.1-1.2) X10*3/uL Eos # (Auto) 0.1 (0.0-0.4) X10*3/uL Baso # (Auto) 0.1 (0.0-0.2) X10*3/uL Abs Immat Gran (auto) 0.03 (0.00-0.03) X10*3/uL Absolute Neuts (auto) 5.3 (2.0-8.3) x10*3/uL Absolute Nucleated RBC 0.000 (0.0-0.012) X10*3/uL Nucleated RBC % (auto) 0.0 (0.0-0.2) /100WBC ESR 2 (0-15) MM/HR Sodium 137 (135-145) mmol/L Potassium 3.7 (3.3-5.1) mmol/L Chloride 102 (96-108) mmol/L Carbon Dioxide 23 (22-29) mmol/L Anion Gap 16 (12-20) BUN 14 (9-16) mg/dL Creatinine 0.85 (0.5-1.4) mg/dL Estim Creat Clear Calc 120.1 Estimated GFR > 60 Random Glucose 130 H (60-115) mg/dL Lactic Acid 2.6 H* (0.5-2.0) mmol/L Lactic Acid F/U @ 2Hr (0.5-2.0) mmol/L Calcium 10.1 (8.4-10.2) mg/dL Magnesium 2.0 (1.6-2.6) mg/dL Total Bilirubin 0.6 (0.0-1.0) mg/dL AST 23 (5-37) U/L ALT 23 (0-40) U/L Alkaline Phosphatase 85 (39-117) U/L C-Reactive Protein 0.13 (< or = 0.50) mg/dL Total Protein 8.2 H (6.5-8.0) g/dL Albumin 4.7 (3.5-5.0) g/dL Urine Color Urine Appearance Urine pH (5.0-9.0) Ur Specific [place] (1.005-1.025) Urine Protein (Neg-Trace) mg/dL Urine Glucose (UA) (Negative) mg/dL Urine Ketones (Negative) mg/dL Urine Blood (Negative) Urine Nitrite (Negative) Ur Leukocyte Esterase (Negative) Salicylates < 5.0 L (15-30) mg/dL Urine Opiates Screen (Not Detect) Urine Fentanyl Screen (Not Detect) Acetaminophen < 3 (<30) mcg/mL Ur Barbiturates Screen (Not Detect) Ur Phencyclidine Scrn (Not Detect) Ur Amphetamines Screen (Not Detect) U Benzodiazepines Scrn (Not Detect) Urine Cocaine Screen (Not Detect) U Marijuana (THC) Screen (Not Detect) Ethyl Alcohol < 10 mg/dL COVID-19 ([facility]) Negative (Negative) COVID-19 Clin Com See Note 11/06/23 11/06/23 Range/Units 12:08 13:15 WBC (4.8-10.8) X10*3/uL RBC (4.60-5.80) X10*6/uL Hgb (14.0-18.0) g/dl Hct (42.0-52.0) % MCV (80.0-98.0) fL MCH (27.0-33.0) pg MCHC (31.0-36.0) g/dl RDW (11.0-16.0) % Plt Count (160-400) X10*3/uL MPV (9.4-12.4) fL Immature Gran % (Auto) (0.0-0.4) % Neut % (Auto) (45-73) % Lymph % (Auto) (20-40) % Turner % (Auto) (2-11) % Eos % (Auto) (0-4) % Baso % (Auto) (0-2) % Lymph # (Auto) (1.2-4.9) X10*3/uL Turner # (Auto) (0.1-1.2) X10*3/uL Eos # (Auto) (0.0-0.4) X10*3/uL Baso # (Auto) (0.0-0.2) X10*3/uL Abs Immat Gran (auto) (0.00-0.03) X10*3/uL Absolute Neuts (auto) (2.0-8.3) x10*3/uL Absolute Nucleated RBC (0.0-0.012) X10*3/uL Nucleated RBC % (auto) (0.0-0.2) /100WBC ESR (0-15) MM/HR Sodium (135-145) mmol/L Potassium (3.3-5.1) mmol/L Chloride (96-108) mmol/L Carbon Dioxide (22-29) mmol/L Anion Gap (12-20) BUN (9-16) mg/dL Creatinine (0.5-1.4) mg/dL Estim Creat Clear Calc Estimated GFR Random Glucose (60-115) mg/dL Lactic Acid (0.5-2.0) mmol/L Lactic Acid F/U @ 2Hr 0.9 (0.5-2.0) mmol/L Calcium (8.4-10.2) mg/dL Magnesium (1.6-2.6) mg/dL Total Bilirubin (0.0-1.0) mg/dL AST (5-37) U/L ALT (0-40) U/L Alkaline Phosphatase (39-117) U/L C-Reactive Protein (< or = 0.50) mg/dL Total Protein (6.5-8.0) g/dL Albumin (3.5-5.0) g/dL Urine Color Yellow Urine Appearance Cloudy Urine pH 7.5 (5.0-9.0) Ur Specific [place] >= 1.030 H (1.005-1.025) Urine Protein Trace (Neg-Trace) mg/dL Urine Glucose (UA) Negative (Negative) mg/dL Urine Ketones Negative (Negative) mg/dL Urine Blood Negative (Negative) Urine Nitrite Negative (Negative) Ur Leukocyte Esterase Negative (Negative) Salicylates (15-30) mg/dL Urine Opiates Screen Not Detected (Not Detect) Urine Fentanyl Screen Not Detected (Not Detect) Acetaminophen (<30) mcg/mL Ur Barbiturates Screen Not Detected (Not Detect) Ur Phencyclidine Scrn Not Detected (Not Detect) Ur Amphetamines Screen Not Detected (Not Detect) U Benzodiazepines Scrn Not Detected (Not Detect) Urine Cocaine Screen Not Detected (Not Detect) U Marijuana (THC) Screen POSITIVE H (Not Detect) Ethyl Alcohol mg/dL COVID-19 ([facility]) (Negative) COVID-19 Clin Com Independent Interpretation I performed an independent interpretation of an: CT Scan Radiology Impression Discussion of test interpretation with radiology: I have reviewed the radiologist's reading. Critical Care Time Critical Care Time Critical Care Time: Yes Total Critical Care Time: 35 Attestation: I attest to this time spent taking care of the patient, obtaining history, physical, reviewing labs, imaging, speaking to my attending, speaking to specialist. Discharge Plan Discharge Clinical Impression: Migraine headache Patient Disposition: Home, Self-Care Instructions: Migraine Headache (ED) Additional Instructions: Rest at home Likely you have migraine headache Take Imitrex at the onset of headache may repeat in 2 hours if headache continues cannot take more than 2 tablets in 24 hours Fioricet 1 tablet every 6 hours as needed Follow-up with PCP as needed Descansar en casa Probablemente tengas migra?a [facility] Imitrex al inicio del dolor de betsy; puede repetirlo en 2 horas si el dolor de betsy contin?a; no puede wade m?s de 2 tabletas en 24 horas. Fioricet 1 comprimido cada 6 horas seg?n sea necesario Seguimiento con el PCP seg?n sea necesario Prescriptions: New sumatriptan succinate [Imitrex] 50 mg tablet 50 mg PO Q2H PRN (Reason: migraine headache) Qty: 10 0RF Rx Instructions: do not exceed 2 doses per 24 hrs bsechmkuef-wcbtsyemiiavx-aujt 50-325-40 mg tablet 1 tab PO Q6H PRN (Reason: haeadace) Qty: 20 0RF No Action ibuprofen 600 mg tablet 600 mg PO Q6H PRN (Reason: fever or pain) Qty: 30 0RF cefuroxime axetil 500 mg tablet 500 mg PO BID Qty: 20 0RF ibuprofen 600 mg tablet 600 mg PO Q8H PRN (Reason: fever or pain) Qty: 20 0RF Referrals: [facility] [Provider Group] Print Language: Finnish
[2023-11-06] MEDS: LORazepam 1 MG TABLET 2 MG PO (09:58)
[2023-11-06] MEDS: fentaNYL citrate/PF 100 MCG/2 ML VIAL 50 MCG IVPUSH (10:25)
[2023-11-06 10:27] VITALS: BMI 24.6
[2023-11-06 10:29] VITALS: BP 149/86; RESP 20; TEMP 37.2; O2SAT 94
[2023-11-06 10:35] LABS: MANUAL DIFF FLAG NO
[2023-11-06 10:40] LABS: Basophils Absolute Auto 0.1 X10*3/uL (0.0-0.2); Basophils Percent Auto 0.9 % (0-2); Eosinophils Absolute Auto 0.1 X10*3/uL (0.0-0.4); Eosinophils Percent Auto 1.5 % (0-4); Hematocrit 47.1 % (42.0-52.0); Hemoglobin 15.6 g/dl (14.0-18.0); Imm Gran Abs Auto 0.03 X10*3/uL (0.00-0.03); Imm Gran Pct Auto 0.4 % (0.0-0.4); Lymphocytes Absolute Auto 2.1 X10*3/uL (1.2-4.9); Lymphocytes Percent Auto 25.6 % (20-40); Mean Corpuscular HGB Conc 33.1 g/dl (31.0-36.0); Mean Corpuscular Hemoglobin 30.8 pg (27.0-33.0); Mean Corpuscular Volume 93.1 fL (80.0-98.0); Mean Platelet Volume 10.3 fL (9.4-12.4); Monocytes Absolute Auto 0.6 X10*3/uL (0.1-1.2); Monocytes Percent Auto 7.6 % (2-11); Neutrophils Absolute Auto 5.3 x10*3/uL (2.0-8.3); Platelet Count 303 X10*3/uL (160-400); Red Blood Count 5.06 X10*6/uL (4.60-5.80); Red Cell Distribution Width 12.4 % (11.0-16.0); White Blood Count 8.2 X10*3/uL (4.8-10.8)
[2023-11-06 10:55] LABS: C Reactive Protein 0.13 mg/dL (< or = 0.50)
[2023-11-06 10:58] LABS: Acetaminophen LAB < 3 mcg/mL (<30); Salicylate < 5.0 mg/dL (15-30)
[2023-11-06 10:59] LABS: Lactic Acid 2.6 mmol/L (0.5-2.0)
[2023-11-06 10:59] LABS: Alanine Aminotransferase 23 U/L (0-40); Albumin Level 4.7 g/dL (3.5-5.0); Alkaline Phosphatase 85 U/L (39-117); Anion Gap 16 (12-20); Aspartate Amino Transferase 23 U/L (5-37); Bilirubin Total 0.6 mg/dL (0.0-1.0); Blood Urea Nitrogen 14 mg/dL (9-16); Calcium 10.1 mg/dL (8.4-10.2); Carbon Dioxide 23 mmol/L (22-29); Chloride 102 mmol/L (96-108); Creatinine Clr Calc Pharmacy 120.1; Estimated Glomerular Filt Rate > 60; Ethanol < 10 mg/dL; Glucose Random 130 mg/dL (60-115); Potassium 3.7 mmol/L (3.3-5.1); Sodium 137 mmol/L (135-145); Total Protein 8.2 g/dL (6.5-8.0)
[2023-11-06] MEDS: cefTRIAXone sodium 1 GM in 0.9 % Sodium Chloride 50 ML IV (11:10)
[2023-11-06 11:26] LABS: Erythrocyte Sedimentation Rate 2 MM/HR (0-15)
[2023-11-06] MEDS: iohexoL 350 MG/ML 75 ML INFUS..BTL 70 ML IV (11:37)
[2023-11-06 11:38] LABS: COVID-19 Test Negative (Negative); IDNOW Serial# 08D9AD1C
--- NOTE | 2023-11-06 12:02 | PC.NURSE ---
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 patient stating no he does not want a lumbar puncture at this time
[2023-11-06 12:05] VITALS: BP 115/70; PULSE 91; RESP 14; O2SAT 97
[2023-11-06 12:33] LABS: Reflex Lactate? Lactic Acid Added
[2023-11-06 12:38] LABS: Appearance Urine Cloudy; Color Urine Yellow; Glucose Urine UA Negative (Negative); Leukocyte Esterase Urine Negative (Negative); Nitrite Urine Negative (Negative); PH 7.5 (5.0-9.0); Specific Gravity - Urine >= 1.030 (1.005-1.025); Urine Blood Negative (Negative); Urine Ketones Negative (Negative); Urine Protein Trace mg/dL (Neg-Trace)
[2023-11-06 12:43] LABS: Amphetamine Screen Urine Not Detected (Not Detect); Barbiturates, Urine Not Detected (Not Detect); Benzodiazepines Screen Urine Not Detected (Not Detect); Cannabinoid Screen Urine POSITIVE (Not Detect); Cocaine Screen Urine Not Detected (Not Detect); Fentanyl, urine Not Detected (Not Detect); Opiate Screen Urine Not Detected (Not Detect); Phencyclidine Screen Urine Not Detected (Not Detect)
--- NOTE | 2023-11-06 13:10 | PC.NURSE ---
Patient resting comfortably with eyes closed, breathing even and unlabored.
[2023-11-06 13:35] LABS: ~Lactic Acid-LAB USE ONLY 0.9 mmol/L (0.5-2.0)
[2023-11-06] MEDS: SUMAtriptan succinate 6 MG/0.5 ML VIAL SUBCUT (14:09)
[2023-11-06 15:16] VITALS: BP 121/77; RESP 14; O2SAT 96
[2023-11-06 18:44] VITALS: BP 119/77; PULSE 73; RESP 15; O2SAT 98
--- NOTE | 2023-11-06 19:13 | PC.NURSE ---
this rn assumed care of pt. pt a&ox4. respirations even and unlabored. pt denies pain at this time. at bedside discussing pt care.
[2023-11-07 07:44] LABS: HIV Num 1 7.17 S/CO (0.00-0.99)
[2023-11-07 09:59] LABS: HIV AB/AG Nonreactive (Nonreactive); HIV Num 2 0.05 S/CO; HIV Num 3 0.04 S/CO
[2023-11-07 12:23] LABS: Lyme Abs Screen <0.90 index
== END 2023-11-06 19:49 | disposition home or self-care (01) ==
PROVIDERS: Physician Assistant; Emergency Provider Student in an Organized Health Care Education/Training Program
DX: G43.909 Migraine, unspecified, not intractable, without status migrainosus (principal); F19.10 Other psychoactive substance abuse, uncomplicated; Z11.52 Encounter for screening for COVID-19; Z79.899 Other long term (current) drug therapy
CPT/HCPCS: 36415; 70450; 70496; 70498; 70551; 80053; 80143; 80179; 80307; 81003; 83605; 83735; 85025; 85652; 86140; 86617; 86618; 87040; 87389; 87635; 96365; 96372; 96375; 99284; 99285; J0696; J3010; J3030; Q9967

== ENCOUNTER 2023-11-10 15:54 | Emergency (ER) | payer MEDICAID, SELFPAY ==
[2023-11-10 16:04] VITALS: BP 117/65; PULSE 100; RESP 18; TEMP 37; O2SAT 97; BMI 26.6
--- NOTE | 2023-11-10 16:06 | ED.EAR ---
HPI - Ear Problem General Chief complaint: Ear Problems Stated complaint: Ear ache Related Data Previous Rx's Medication Instructions Recorded cefuroxime axetil 500 mg tablet 500 mg PO BID #20 tabs 05/29/23 ibuprofen 600 mg tablet 600 mg PO Q6H PRN fever or pain 05/29/23 #30 tabs ibuprofen 600 mg tablet 600 mg PO Q8H PRN fever or pain 11/05/23 #20 tabs cflxwepiat-rhfxlakmbfjdl-kvhvtzxb 1 tab PO Q6H PRN haeadace #20 tabs 11/06/23 50 mg-325 mg-40 mg tablet sumatriptan succinate 50 mg tablet 50 mg PO Q2H PRN migraine headache 11/06/23 (Imitrex) #10 tabs Allergies Allergy/AdvReac Type Severity Reaction Status Date / Time No Known Allergies Allergy Verified 11/05/23 17:24 [No Known Allergies*] [facility] Past Medical History Medical History Polysubstance abuse Social History Social History Alcohol intake: former Advance Directives: No Advance Directives Information Provided: No Physical Exam Vital Signs: Vital Signs: Last Vital Signs Temp 98.6 F 11/10/23 16:04 Pulse 100 11/10/23 16:04 Resp 18 11/10/23 16:04 BP 117/65 11/10/23 16:04 Pulse Ox 97 11/10/23 16:04 O2 Del Method Room Air 11/10/23 16:04 BMI result Body Mass Index 26.6 Course Course Course Narrative: This is an RME: Additional HPI, ROS, PE not included below will be deferred to primary provider. This a 38-year-old male presenting to the emergency department with complaints of bilateral ear blockage times months. patient has no ear pain, no fevers or chills. I looked inside his ears and when I told him there is nothing blocking his ears he got out and left triage And left the emergency room. I attempted to explain other etiologies and that he needed further workup but he proceeded out of the triage room and out of the ER. Vital signs stable. Discharge Plan Discharge Clinical Impression: Otalgia Patient Disposition: Left W/O Completing Treatment Prescriptions: No Action ibuprofen 600 mg tablet 600 mg PO Q6H PRN (Reason: fever or pain) Qty: 30 0RF cefuroxime axetil 500 mg tablet 500 mg PO BID Qty: 20 0RF ibuprofen 600 mg tablet 600 mg PO Q8H PRN (Reason: fever or pain) Qty: 20 0RF sumatriptan succinate [Imitrex] 50 mg tablet 50 mg PO Q2H PRN (Reason: migraine headache) Qty: 10 0RF Rx Instructions: do not exceed 2 doses per 24 hrs laiztdwzoz-wpxfquudqwwpy-ialk 50-325-40 mg tablet 1 tab PO Q6H PRN (Reason: haeadace) Qty: 20 0RF Discharge Date/Time: 11/10/23 19:39
== END 2023-11-10 19:39 | disposition left against medical advice (07) ==
LOC: HO.ED 16:16
PROVIDERS: Emergency Provider Emergency Medicine
DX: H92.03 Otalgia, bilateral (principal); Z79.899 Other long term (current) drug therapy
CPT/HCPCS: 99281; 99283

== ENCOUNTER 2024-03-10 08:14 | Emergency (ER) | payer SELFPAY ==
[2024-03-10 08:16] VITALS: BP 127/78; PULSE 84; RESP 18; TEMP 36.7; O2SAT 97; BMI 23.4
[2024-03-10 08:59] LABS: MANUAL DIFF FLAG NO
[2024-03-10 09:02] LABS: Basophils Absolute Auto 0.1 X10*3/uL (0.0-0.2); Basophils Percent Auto 0.4 % (0-2); Eosinophils Percent Auto 0.1 % (0-4); Hematocrit 42.6 % (42.0-52.0); Hemoglobin 14.5 g/dl (14.0-18.0); Imm Gran Abs Auto 0.04 X10*3/uL (0.00-0.03); Imm Gran Pct Auto 0.3 % (0.0-0.4); Lymphocytes Absolute Auto 1.2 X10*3/uL (1.2-4.9); Mean Corpuscular Hemoglobin 31.6 pg (27.0-33.0); Mean Corpuscular Volume 92.8 fL (80.0-98.0); Mean Platelet Volume 9.1 fL (9.4-12.4); Monocytes Absolute Auto 0.3 X10*3/uL (0.1-1.2); Monocytes Percent Auto 2.5 % (2-11); Neutrophils Absolute Auto 11.3 x10*3/uL (2.0-8.3); Neutrophils Percent Auto 87.7 % (45-73); Platelet Count 313 X10*3/uL (160-400); Red Blood Count 4.59 X10*6/uL (4.60-5.80); Red Cell Distribution Width 12.5 % (11.0-16.0); White Blood Count 12.8 X10*3/uL (4.8-10.8)
--- NOTE | 2024-03-10 09:22 | ED_ITS ---
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 Has never had pancreatitis. Denies fevers MD elicited complaint: nausea, vomiting, diarrhea and abdominal pain Onset (ago): day(s) (this AM) Description of vomiting: watery Description of diarrhea: watery Associated nausea: Yes Associated abdominal pain: Yes Location of pain: diffuse Pain consistency: intermittent Severity: mild Quality: aching Exacerbating factors: eating Relieving factors: none Context: alcohol abuse Associated symptoms: loss of appetite, malaise and nausea/vomiting Related Data Previous Rx's ?Medication ?Instructions ?Recorded cefuroxime axetil 500 mg tablet 500 mg PO BID #20 tabs 05/29/23 ibuprofen 600 mg tablet 600 mg PO Q6H PRN fever or pain 05/29/23 #30 tabs ibuprofen 600 mg tablet 600 mg PO Q8H PRN fever or pain 11/05/23 #20 tabs yafjbfdjdh-mxmnlrpwnegqa-xxaftcby 1 tab PO Q6H PRN haeadace #20 tabs 11/06/23 50 mg-325 mg-40 mg tablet sumatriptan succinate 50 mg tablet 50 mg PO Q2H PRN migraine headache 11/06/23 (Imitrex) #10 tabs Allergies Allergy/AdvReac Type Severity Reaction Status Date / Time No Known Allergies Allergy Verified 03/10/24 08:19 [No Known Allergies*] Review of Systems 2 Review of Systems: Constitutional : No Weight loss, No Fever, No Chills ENT/Mouth : No sore throat, No Rhinorrhea Eyes: No Swelling, No Redness Cardiovascular : No Chest Pain, No SOB, NoEdema Respiratory : No Cough, No Sputum, No Wheezing Gastrointestinal : Positive Nausea, Positive Vomiting, positive Diarrhea, positive abdominal Pain, No Hematochezia, No Melena Genitourinary : No Dysuria, No Urinary Frequency, No Hematuria, No Urgency Musculoskeletal : No joint pain, No Myalgias, No Joint Swelling Skin : No Skin Lesions, No rash Neuro : No Weakness, No Numbness, No Dizziness, No Headache Psych : No Anxiety/Panic, No Depression All other systems reviewed and are negative. Gastrointestinal: Gastrointestinal: Reports nausea PMFSH Past Medical History Attestation statement: The following information was validated with the patient. Source: old records reviewed Medical History Polysubstance abuse Social History Social History Alcohol intake: former Advance Directives: No Advance Directives Information Provided: No Physical Exam 2 Vital Signs: Vital Signs: Last Vital Signs Temp 98.1 F 03/10/24 08:16 Pulse 84 03/10/24 08:16 Resp 18 03/10/24 08:16 BP 127/78 03/10/24 08:16 Pulse Ox 97 03/10/24 08:16 O2 Del Method Room Air 03/10/24 08:16 BMI result Body Mass Index 23.4 Appearance: Alert. Oriented X3. No acute distress. Eyes: Pupils equal, round and reactive to light. ENT: Pharynx normal. Neck: Normal inspection. Neck supple. CVS: Normal heart rate and rhythm. Pulses normal. Respiratory: No respiratory distress. Breath sounds normal. Abdomen: Soft and mild periumbilical ttp no rebound Skin: Skin warm and dry. Normal skin color. Normal skin turgor. Extremities: No lower extremity edema. No calf ttp Neuro: Oriented X 3. No motor deficit. No sensory deficit. Medical Decision Making Medical Decision Making [facility] Narrative: 39 yo male with no sig PMH here with c/o waking up with n/v and diarrhea and diffuse abdominal pain did drink ETOH last night no history of pancreatitis at this time will obtain labs, start supportive medications if lipase elevated will obtain imaging, no acute abdominal exam findings Differential Diagnosis Differential Diagnoses: The differential diagnosis associated with the presentation includes pancreatitis, gastritis, enteritis Admission/Observation Consideration of admission/observation: Escalation of care including admission/observation considered left AMA Lab Data [facility] Lab Attestation statement: I reviewed the patient's lab results. 03/10/24 08:52 03/10/24 08:52 Labs: Lab Results 03/10/24 Range/Units 08:52 WBC 12.8 H (4.8-10.8) X10*3/uL RBC 4.59 L (4.60-5.80) X10*6/uL Hgb 14.5 (14.0-18.0) g/dl Hct 42.6 (42.0-52.0) % MCV 92.8 (80.0-98.0) fL MCH 31.6 (27.0-33.0) pg MCHC 34.0 (31.0-36.0) g/dl RDW 12.5 (11.0-16.0) % Plt Count 313 (160-400) X10*3/uL MPV 9.1 L (9.4-12.4) fL Immature Gran % (Auto) 0.3 (0.0-0.4) % Neut % (Auto) 87.7 H (45-73) % Lymph % (Auto) 9.0 L (20-40) % Major % (Auto) 2.5 (2-11) % Eos % (Auto) 0.1 (0-4) % Baso % (Auto) 0.4 (0-2) % Lymph # (Auto) 1.2 (1.2-4.9) X10*3/uL Major # (Auto) 0.3 (0.1-1.2) X10*3/uL Eos # (Auto) 0.0 (0.0-0.4) X10*3/uL Baso # (Auto) 0.1 (0.0-0.2) X10*3/uL Abs Immat Gran (auto) 0.04 H (0.00-0.03) X10*3/uL Absolute Neuts (auto) 11.3 H (2.0-8.3) x10*3/uL Absolute Nucleated RBC 0.000 (0.0-0.012) X10*3/uL Nucleated RBC % (auto) 0.0 (0.0-0.2) /100WBC External Record Review External record reviewed: Office record Tests considered The following testing was considered but not selected: CT scan but left AMA Discharge Plan Discharge Clinical Impression: Abdominal pain Qualifiers: Abdominal location: generalized Qualified Code(s): R10.84 - Generalized abdominal pain Patient Disposition: Left Against Medical Advice Instructions: Abdominal Pain (ED) Prescriptions: No Action ibuprofen 600 mg tablet 600 mg PO Q6H PRN (Reason: fever or pain) Qty: 30 0RF cefuroxime axetil 500 mg tablet 500 mg PO BID Qty: 20 0RF ibuprofen 600 mg tablet 600 mg PO Q8H PRN (Reason: fever or pain) Qty: 20 0RF sumatriptan succinate [Imitrex] 50 mg tablet 50 mg PO Q2H PRN (Reason: migraine headache) Qty: 10 0RF Rx Instructions: do not exceed 2 doses per 24 hrs hhzwmyjjiy-mfctrzoovbumk-stut 50-325-40 mg tablet 1 tab PO Q6H PRN (Reason: haeadace) Qty: 20 0RF Stand Alone Forms: Against Medical Advice Print Language: [place]
[2024-03-10 09:25] VITALS: BP 127/78; PULSE 84; RESP 18; TEMP 36.7; O2SAT 97
--- NOTE | 2024-03-10 09:28 | PC.NURSE ---
pt requesting to leave, aware, AMA paperwork signed.
[2024-03-10 09:30] LABS: Alanine Aminotransferase 26 U/L (0-40); Albumin Level 4.4 g/dL (3.5-5.0); Alkaline Phosphatase 85 U/L (39-117); Anion Gap 11 (12-20); Aspartate Amino Transferase 36 U/L (5-37); Bilirubin Total 0.4 mg/dL (0.0-1.0); Blood Urea Nitrogen 16 mg/dL (9-16); Calcium 9.4 mg/dL (8.4-10.2); Carbon Dioxide 28 mmol/L (22-29); Chloride 104 mmol/L (96-108); Creatinine Clr Calc Pharmacy 115.5; Estimated Glomerular Filt Rate > 60; Glucose Random 111 mg/dL (60-115); Lipase 75 U/L (8-78); Sodium 139 mmol/L (135-145); Total Protein 7.3 g/dL (6.5-8.0)
[2024-03-10 09:53] LABS: Influenza A PCR NEGATIVE (Negative); Influenza B PCR NEGATIVE (Negative); Resp Syncy Virus RNA Qual PCR NEGATIVE (Negative); SARS COV2 PCR INHOUSE NEGATIVE (Negative)
== END 2024-03-10 09:28 | disposition left against medical advice (07) ==
PROVIDERS: Emergency Provider Emergency Medicine
DX: R11.2 Nausea with vomiting, unspecified (principal); R19.7 Diarrhea, unspecified; R10.84 Generalized abdominal pain; Z03.818 Encounter for observation for suspected exposure to other biological agents ruled out; Z79.899 Other long term (current) drug therapy
CPT/HCPCS: 0241U; 80053; 83690; 85025; 99282; 99283

== ENCOUNTER 2024-05-29 11:02 | Emergency (ER) | payer SELFPAY ==
[2024-05-29 11:12] VITALS: BP 121/88; PULSE 97; RESP 16; TEMP 36.8; O2SAT 99; BMI 22.6
--- NOTE | 2024-05-29 11:13 | ED.SKABFB ---
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 He states that he cut his right palm with a kitchen knife prior to arrival. Bleeding controlled on arrival. He is unsure of last tetanus. No other concerns. Denies numbness/tingling/weakness of the right upper extremity. Related Data Previous Rx's ?Medication ?Instructions ?Recorded cefuroxime axetil 500 mg tablet 500 mg PO BID #20 tabs 05/29/23 ibuprofen 600 mg tablet 600 mg PO Q6H PRN fever or pain 05/29/23 #30 tabs ibuprofen 600 mg tablet 600 mg PO Q8H PRN fever or pain 11/05/23 #20 tabs lrhlecemvz-aedrgweezgxjl-tqzmlhsw 1 tab PO Q6H PRN haeadace #20 tabs 11/06/23 50 mg-325 mg-40 mg tablet sumatriptan succinate 50 mg tablet 50 mg PO Q2H PRN migraine headache 11/06/23 (Imitrex) #10 tabs Allergies Allergy/AdvReac Type Severity Reaction Status Date / Time No Known Allergies Allergy Verified 05/29/24 11:13 [No Known Allergies*] Review of Systems Review of Systems: Constitutional: No fever, chills, fatigue, night sweats, weight changes ENT/Mouth: No ear pain, hearing loss, nasal congestion, sinus pain, rhinorrhea, sore throat Eyes: No eye pain, swelling, redness, vision changes, discharge Cardio: No chest pain, palpitations, GRAHAM, orthopnea, peripheral edema Pulm: No SOB, cough, sputum, wheezing, dyspnea, hemoptysis GI: No nausea, vomiting, hematemesis, abdominal pain, diarrhea, constipation, hematochezia, melena : No irregular bleeding, dysuria, frequency, urgency, hesitancy, hematuria, flank pain, urinary flow changes, urinary incontinence or retention MSK: No back pain, neck pain, joint pain, myalgias Skin: No lesions, rashes, +right hand laceration Neuro: No weakness, numbness, paresthesias, LOC, dizziness, headache Psych: No anxiety/panic, depression, SI/HI, AH/VH All other systems reviewed and are negative. [facility] Past Medical History Attestation statement: The following information was validated with the patient. Source: old records reviewed and nursing notes reviewed Medical History Polysubstance abuse Social History Social History Alcohol intake: former Advance Directives: No Advance Directives Information Provided: No Do you have a plan to hurt others: No Plan Physical Exam Vital Signs: Vital Signs: Last Vital Signs Temp 98.2 F 05/29/24 11:24 Pulse 97 05/29/24 11:24 Resp 16 05/29/24 11:24 BP 121/88 05/29/24 11:24 Pulse Ox 99 05/29/24 11:24 O2 Del Method Room Air 05/29/24 11:24 BMI result Body Mass Index 22.6 Vital signs stable, afebrile Const: General: cooperative, healthy appearing, comfortable, no acute distress and well developed Orientation/consciousness: patient oriented x3 Limitations: no limitations HEENT: Head: Yes normal to inspection Eyes: General: appearance normal, both eyes and all related structures Resp: Effort & Inspection: normal respiratory effort and able to speak in complete sentences Cardio: Rate: regular rate Rhythm: regular rhythm Skin: Other: + 1 cm superficial linear laceration noted to right palm just proximal to wrist. No active bleeding or discharge. No surrounding erythema. No foreign body. Tender to palpation. No palpable fluctuance. Strength intact. Full ROM to all digits and right wrist. 2+ radial and ulnar pulse intact. Neuro: General: patient oriented x3, gait normal and tone normal Extrem: Other: + see above Course Course Course Narrative: 1120--lac repaired with Dermabond. Patient tolerated well. Tdap booster administered. Patient has remained stable throughout ED visit today. Discussed worrisome signs and symptoms and when to return to the ED. All questions answered at this time. Patient is agreeable with disposition and stable for discharge. Medications Administered Discontinued Medications Generic Name Dose Route Start Last Admin Trade Name Freq PRN Reason Stop Dose Admin Diphtheria/Tetanus/Acell Pertussis 0.5 ml 05/29/24 11:13 05/29/24 11:18 Diphth,Pertus(Acell),Tet Adult 0.5 Ml Syringe IM 05/29/24 11:14 0.5 ml .ONCE ONE Administration Medical Decision Making Medical Decision Making MDM Narrative: 39-year-old right handed Citizen [place]-speaking male with no significant past medical history presents to the ED today for evaluation of laceration to right palm. Vital signs stable. He is nontoxic-appearing and in no acute distress. On exam, there is a 1 cm superficial linear laceration noted to right palm just proximal to wrist. No active bleeding or discharge. No surrounding erythema. No foreign body. Tender to palpation. No palpable fluctuance. Strength intact. Full ROM to all digits and right wrist. 2+ radial and ulnar pulse intact. Differential diagnosis includes abrasion, laceration. Plan for black repair, Tdap booster and disposition. Differential Diagnosis Differential Diagnoses: The differential diagnosis associated with the presentation includes As above Admission/Observation Not indicated External Record Review External record reviewed: Inpatient record Social Determinants Patient?s care significantly limited by Social Determinants of Health including: Other Social Determinant of Health Procedures Laceration Laceration 1: Site: hand Side (If applicable): right Size (cm): 1 Description: linear Depth: simple, single layer Pre-repair: wound explored, irrigated extensively and deep structures intact Skin layer closed with: other (dermabond) Critical Care Time Critical Care Time Critical Care Time: No Discharge Plan Discharge Clinical Impression: Laceration of hand Qualifiers: Encounter type: initial encounter Foreign body presence: without foreign body Laterality: right Qualified Code(s): S61.411A - Laceration without foreign body of right hand, initial encounter Patient Disposition: Home, Self-Care Instructions: Laceration (ED), Skin Adhesive Care (ED) Additional Instructions: You were evaluated in the ED for hand laceration. This was repaired with skin glue. Keep the area clean and dry. Do not wet the area for at least 24 hours. Your tetanus shot was updated today. Return with new or worsening symptoms. In the case of an emergency all 911. Prescriptions: No Action ibuprofen 600 mg tablet 600 mg PO Q6H PRN (Reason: fever or pain) Qty: 30 0RF cefuroxime axetil 500 mg tablet 500 mg PO BID Qty: 20 0RF ibuprofen 600 mg tablet 600 mg PO Q8H PRN (Reason: fever or pain) Qty: 20 0RF sumatriptan succinate [Imitrex] 50 mg tablet 50 mg PO Q2H PRN (Reason: migraine headache) Qty: 10 0RF Rx Instructions: do not exceed 2 doses per 24 hrs mlnsfismup-edjeoarrheodb-nilg 50-325-40 mg tablet 1 tab PO Q6H PRN (Reason: haeadace) Qty: 20 0RF Interventions: ED Discharge Assessment Last Done: 05/29/24 11:24 Discharge Date/Time: 05/29/24 11:24 Print Language: Citizen [place]
[2024-05-29] MEDS: Diphth,Pertus(ACell),Tet Adult 0.5 ML SYRINGE IM (11:18)
[2024-05-29 11:24] VITALS: BP 121/88; PULSE 97; RESP 16; TEMP 36.8; O2SAT 99
== END 2024-05-29 11:24 | disposition home or self-care (01) ==
PROVIDERS: Emergency Provider Emergency Medicine
DX: S61.412A Laceration without foreign body of left hand, initial encounter (principal); W26.0XXA Contact with knife, initial encounter; Y93.9 Activity, unspecified; Y92.000 Kitchen of unspecified non-institutional (private) residence as the place of occurrence of the external cause; Y99.9 Unspecified external cause status; Z23 Encounter for immunization
CPT/HCPCS: 12001; 90471; 90715; 99282; 99284

== ENCOUNTER 2024-08-26 17:21 | Emergency (ER) | payer MEDICAID, SELFPAY ==
--- NOTE | 2024-08-26 17:23 | ECG_ITS ---
Test Reason : chest pain Blood Pressure : / mmHG Vent. Rate : 098 BPM Atrial Rate : 098 BPM P-R Int : 130 ms QRS Dur : 090 ms QT Int : 332 ms P-R-T Axes : 000 144 139 degrees QTc Int : 423 ms Suspect limb lead reversal, interpretation assumes no reversal Normal sinus rhythm Right axis deviation Abnormal ECG When compared with ECG of 28-MAY-2023 21:36, QRS axis Shifted right Referred By: Generic ED Physician Electronically Signed By:MARILYN CASE
== END 2024-08-26 19:38 | disposition left against medical advice (07) ==
PROVIDERS: Emergency Provider Emergency Medicine
DX: R07.89 Other chest pain (principal); M54.2 Cervicalgia
CPT/HCPCS: 93005; 99281; 99282

== ENCOUNTER 2024-12-10 04:02 | Emergency (ER) | payer SELFPAY ==
--- NOTE | ~2024-12-10 | XR_ITS ---
CLINICAL HISTORY: upper respiratory 1 view chest x-ray Comparison: CR/SR - XR CHEST 2V - 11/05/23 17:40 EST Findings: No consolidation or effusion. Normal size heart. No acute fracture. IMPRESSION: 1. No acute findings. This document has been electronically signed by: Sherly Rivas MD on 12/10/2024 06:22:17
[2024-12-10 04:10] VITALS: BP 147/88; PULSE 70; RESP 17; TEMP 36.7; O2SAT 100; BMI 25.7
[2024-12-10 05:10] LABS: Influenza A PCR NEGATIVE (Negative); Influenza B PCR NEGATIVE (Negative); Resp Syncy Virus RNA Qual PCR NEGATIVE (Negative); SARS COV2 PCR INHOUSE NEGATIVE (Negative)
[2024-12-10 06:10] VITALS: BP 142/79; PULSE 88; RESP 16; O2SAT 97
--- NOTE | 2024-12-10 07:43 | ED.URI ---
HPI - URI/Sore Throat General Chief Complaint: Upper Respiratory Symptoms Stated Complaint: flu like Time Seen by Provider: 12/10/24 06:43 Source: patient Mode of arrival: ambulatory Limitations: no limitations History of Present Illness ED Provider: Carolina Mijares NP HPI Narrative: Patient is a 39-year-old male presents emergency department for evaluation, he has been experiencing nasal congestion and a nonproductive cough for the past 3 days. Denies fevers, chills, headache, dizziness, neck pain, neck stiffness, chest pain, shortness of breath, difficulty breathing, sore throat, nausea, vomiting, abdominal pain, numbness or tingling of the extremities, genitourinary symptoms. Related Data Previous Rx's ?Medication ?Instructions ?Recorded cefuroxime axetil 500 mg tablet 500 mg PO BID #20 tabs 05/29/23 ibuprofen 600 mg tablet 600 mg PO Q6H PRN fever or pain 05/29/23 #30 tabs ibuprofen 600 mg tablet 600 mg PO Q8H PRN fever or pain 11/05/23 #20 tabs knueynbjro-qzpktfayuiquz-ybtwglps 1 tab PO Q6H PRN haeadace #20 tabs 11/06/23 50 mg-325 mg-40 mg tablet sumatriptan succinate 50 mg tablet 50 mg PO Q2H PRN migraine headache 11/06/23 (Imitrex) #10 tabs Allergies Allergy/AdvReac Type Severity Reaction Status Date / Time No Known Allergies Allergy Verified 12/10/24 04:11 [No Known Allergies*] Review of Systems Review of Systems: Yes all other systems are reviewed and are negative PMFSH Past Medical History Attestation statement: The following information was validated with the patient. Source: old records reviewed Medical History Polysubstance abuse Social History Social History Alcohol intake: former Advance Directives: No Advance Directives Information Provided: Yes Do you have a plan to hurt others: No Plan Physical Exam Vital Signs: Vital Signs: Last Vital Signs Temp 98.1 F 12/10/24 04:10 Pulse 88 12/10/24 06:10 Resp 16 12/10/24 06:10 BP 142/79 H 12/10/24 06:10 Pulse Ox 97 12/10/24 06:10 O2 Del Method Room Air 12/10/24 06:10 BMI result Body Mass Index 25.7 Appearance: Alert.?Oriented to person, place and time. No acute distress.?Normal affect. Eyes: Pupils equal, round and reactive to light.? ENT: TM normal bilaterally. Pharynx normal.?? Neck: Normal inspection.? Neck supple.??No cervical adenopathy CVS: Heart sounds normal. Normal heart rate and rhythm.? Pulses normal.?? Respiratory: No respiratory distress.? Lung sounds clear to auscultation bilaterally?? Abdomen: Soft and non-tender. Normoactive bowel sounds. Skin: Skin warm and dry.? Normal skin color.? ? Extremities: No lower extremity edema.? Neuro: Moves all extremities spontaneously. Sensation intact bilaterally. No motor deficits. Ambulates with normal steady gait. Medical Decision Making Medical Decision Making MDM Narrative: Patient is a 39-year-old male, presenting for evaluation of upper respiratory symptoms. COVID-19/influenza/RSV testing negative. Chest x-ray was obtained prior to my assumption of care and is without acute pathology no evidence of consolidation or infiltrate to suggest a pneumonia. At this time history and physical exam not consistent with ACS/PE. Well-appearing, nontoxic, afebrile, no tachycardia or tachypnea/hypoxia. Speaking clear full sentences, ambulatory with steady gait. Discussed conservative treatment including rest, hydration, Tylenol/ibuprofen as needed for fever and body aches, saline nasal spray, humidifier, qpor-dnb-iihgtzb cold medication. Advised to follow-up with primary care provider as needed, discussed reasons to return back to the emergency department. All questions were answered. Patient discharged home in stable condition. Differential Diagnosis Differential Diagnoses: The differential diagnosis associated with the presentation includes ( See narrative above) Admission/Observation Consideration of admission/observation: Escalation of care including admission/observation considered ( see narrative above) Lab Data [facility] Lab Attestation statement: I reviewed the patient's lab results. ( see narrative above) Labs: Lab Results 12/10/24 Range/Units 04:23 Influenza Type A (PCR) NEGATIVE (Negative) Influenza Type B (PCR) NEGATIVE (Negative) RSV RNA Qual (PCR) NEGATIVE (Negative) SARS-CoV-2 RNA (RT-PCR) NEGATIVE (Negative) Independent Interpretation I performed an independent interpretation of an: Plain X-Ray (See narrative above) Radiology Impression Discussion of test interpretation with radiology: I have reviewed the radiologist's reading. Radiologist Impression: 1 view chest x-ray Comparison: CR/SR - XR CHEST 2V - 11/05/23 17:40 EST Findings: No consolidation or effusion. Normal size heart. No acute fracture. IMPRESSION: 1. No acute findings. Prescription Management I considered prescription management with: Pain Medication ( acetaminophen/ibuprofen) and Antibiotic (Suspect viral infection, would defer antibiotics at this time) Discharge Plan Discharge Clinical Impression: Upper respiratory infection Patient Disposition: Home, Self-Care Instructions: Upper Respiratory Infection (ED) Additional Instructions: Chest x-ray does not show evidence of pneumonia or abnormality. Testing for COVID, flu, RSV were all negative. Your symptoms are consistent with an upper respiratory infection/common cold. Be sure to rest, stay well hydrated drinking plenty of fluids, eat small frequent meals. Tylenol/ibuprofen can be used as needed for fever/pain. Qlzz-fco-arpqpbt cold medications may be helpful as well for symptoms. Saline nasal spray, humidifier may be helpful for nasal congestion. You may return to the emergency department with any new or worsening symptoms or concerns. Follow-up with your primary care provider as needed. Should remain out of school/ work until symptoms have resolved and have been without a fever for 24 hours without the use of Tylenol or ibuprofen. Prescriptions: No Action ibuprofen 600 mg tablet 600 mg PO Q6H PRN (Reason: fever or pain) Qty: 30 0RF cefuroxime axetil 500 mg tablet 500 mg PO BID Qty: 20 0RF ibuprofen 600 mg tablet 600 mg PO Q8H PRN (Reason: fever or pain) Qty: 20 0RF sumatriptan succinate [Imitrex] 50 mg tablet 50 mg PO Q2H PRN (Reason: migraine headache) Qty: 10 0RF Rx Instructions: do not exceed 2 doses per 24 hrs tfxelgosdx-ekfrulphfjhua-ttyn 50-325-40 mg tablet 1 tab PO Q6H PRN (Reason: haeadace) Qty: 20 0RF Print Language: Unknown
[2024-12-10 07:58] VITALS: BP 145/96; PULSE 66; RESP 16; O2SAT 100
[2024-12-10 08:11] VITALS: BP 145/96; PULSE 66; RESP 16; TEMP 36.7; O2SAT 100
== END 2024-12-10 08:12 | disposition home or self-care (01) ==
PROVIDERS: Emergency Provider Emergency Medicine
DX: J06.9 Acute upper respiratory infection, unspecified (principal); R05.9 Cough, unspecified; Z03.818 Encounter for observation for suspected exposure to other biological agents ruled out; F19.10 Other psychoactive substance abuse, uncomplicated
CPT/HCPCS: 0241U; 71045; 99283

== ENCOUNTER → 2024-12-10 06:00 | Outpatient (BNV) | payer MEDICAID, SELFPAY | PROVIDERS: Visit Provider Radiology Diagnostic Radiology | DX: J06.9 Acute upper respiratory infection, unspecified (principal) | CPT/HCPCS: 71045 ==

== ENCOUNTER 2024-12-19 11:11 | Emergency (ER) | payer SELFPAY ==
--- NOTE | ~2024-12-19 | XR_ITS ---
CLINICAL HISTORY: cough, fever Chest two-view Comparison: CR - XR CHEST 1V - 12/10/24 06:00 EST CR/SR - XR CHEST 2V - 11/05/23 17:40 EST Findings: Clear lungs. No consolidation, venous distention, pulmonary edema, pleural effusion or pneumothorax. Normal heart size and mediastinal contour. Bones, soft tissues and upper abdomen are unremarkable. IMPRESSION: No acute cardiopulmonary process. This document has been electronically signed by: Mundo Lloyd MD on 12/19/2024 12:33:50
[2024-12-19 11:17] VITALS: BP 137/74; PULSE 113; RESP 18; TEMP 37.1; O2SAT 99; BMI 21.5
--- NOTE | 2024-12-19 11:17 | ED.HA ---
HPI - Headache General Chief Complaint: General Medical Stated Complaint: Headache, fever, body aches Time Seen by Provider: 12/19/24 12:47 Related Data Previous Rx's ?Medication ?Instructions ?Recorded cefuroxime axetil 500 mg tablet 500 mg PO BID #20 tabs 05/29/23 ibuprofen 600 mg tablet 600 mg PO Q6H PRN fever or pain 05/29/23 #30 tabs ibuprofen 600 mg tablet 600 mg PO Q8H PRN fever or pain 11/05/23 #20 tabs fzanuwiluv-gxmawirmixnyt-luuwmaqt 1 tab PO Q6H PRN haeadace #20 tabs 11/06/23 50 mg-325 mg-40 mg tablet sumatriptan succinate 50 mg tablet 50 mg PO Q2H PRN migraine headache 11/06/23 (Imitrex) #10 tabs Allergies Allergy/AdvReac Type Severity Reaction Status Date / Time No Known Allergies Allergy Verified 12/19/24 11:20 [No Known Allergies*] PMFSH Past Medical History Medical History Polysubstance abuse Social History Social History Alcohol intake: former Advance Directives: No Advance Directives Information Provided: No Do you have a plan to hurt others: No Plan Physical Exam Vital Signs: Vital Signs: Last Vital Signs Temp 98.7 F 12/19/24 11:17 Pulse 113 H 12/19/24 11:17 Resp 18 12/19/24 11:17 BP 137/74 12/19/24 11:17 Pulse Ox 99 12/19/24 11:17 O2 Del Method Room Air 12/19/24 11:17 BMI result Body Mass Index 21.5 Course Course Course Narrative: This is a rapid medical exam. Deferred additional HPI, ROS, PE to primary provider. 39 yo male with no PMH here with complaints of headache, chills, chest discomfort, cough x 2 days. Will obtain viral testing, CXR KATARZYNA -William Marie [employer] Reevaluation(s) Reevaluation #1: 1255-Patient left without completing treatment. 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 No answer, LVM with call back. Medical Decision Making Lab Data Labs: Lab Results 12/19/24 Range/Units 11:48 Influenza Type A (PCR) POSITIVE A (Negative) Influenza Type B (PCR) NEGATIVE (Negative) RSV RNA Qual (PCR) NEGATIVE (Negative) SARS-CoV-2 RNA (RT-PCR) NEGATIVE (Negative) Discharge Plan Discharge Clinical Impression: Influenza A Patient Disposition: Left W/O Completing Treatment Prescriptions: No Action ibuprofen 600 mg tablet 600 mg PO Q6H PRN (Reason: fever or pain) Qty: 30 0RF cefuroxime axetil 500 mg tablet 500 mg PO BID Qty: 20 0RF ibuprofen 600 mg tablet 600 mg PO Q8H PRN (Reason: fever or pain) Qty: 20 0RF sumatriptan succinate [Imitrex] 50 mg tablet 50 mg PO Q2H PRN (Reason: migraine headache) Qty: 10 0RF Rx Instructions: do not exceed 2 doses per 24 hrs abykbycqdg-oybevsddipfto-aizc 50-325-40 mg tablet 1 tab PO Q6H PRN (Reason: haeadace) Qty: 20 0RF Discharge Date/Time: 12/19/24 13:12
[2024-12-19 12:32] LABS: Influenza A PCR POSITIVE (Negative); Influenza B PCR NEGATIVE (Negative); Resp Syncy Virus RNA Qual PCR NEGATIVE (Negative); SARS COV2 PCR INHOUSE NEGATIVE (Negative)
== END 2024-12-19 13:12 | disposition left against medical advice (07) ==
PROVIDERS: Nurse Practitioner Family; Emergency Provider Emergency Medicine
DX: J10.1 Influenza due to other identified influenza virus with other respiratory manifestations (principal); R51.9 Headache, unspecified; R50.9 Fever, unspecified; M79.10 Myalgia, unspecified site; R05.9 Cough, unspecified; Z03.818 Encounter for observation for suspected exposure to other biological agents ruled out
CPT/HCPCS: 0241U; 71046; 99281; 99283

== ENCOUNTER → 2024-12-19 11:18 | Outpatient (BNV) | payer SELFPAY | PROVIDERS: Visit Provider Radiology Diagnostic Radiology | DX: R05.9 Cough, unspecified (principal); R50.9 Fever, unspecified | CPT/HCPCS: 71046 ==